=== PATIENT | male | born 1950 | race Caucasian/White ===

== ENCOUNTER 2018-04-11 10:46 | Day surgery (SDC) | payer MEDICARE ==
[~2018-04-11 10:46] MED LIST: ANCEF/STERILE WATER 2 GM/20 ML 2 GM/20 ML SYRINGE IV SCH; ceFAZolin 2 GM in NACL 0.9% 100 ML IV ONE
[2018-04-11] MEDS ORDERED: NACL BACTERIOSTATIC INFILTRATI ONE (11:32)
[2018-04-11] MEDS ORDERED: LACTATED RINGERS 1,000 ML ONE (11:57)
--- NOTE | 2018-04-11 11:57 | Anesthesia Consultation ---
Anesthesia Consult and Med Hx Date of service: 04/11/18 - Airway Anesthetic Teeth Evaluation: Good ROM Head & Neck: Adequate Mental/Hyoid Distance: Adequate Mallampati Class: Class II Intubation Access Assessment: Probably Good - Pre-Operative Health Status ASA Pre-Surgery Classification: ASA2 Proposed Anesthetic Plan: General - Pulmonary Hx Smoking: Yes (FORMER) - Cardiovascular System Hx Hypertension: Yes (10 YEARS) - Central Nervous System Hx Psychiatric Problems: No - Other Systems Hx Alcohol Use: No Hx Substance Use: No Hx Cancer: No
[2018-04-11] MEDS ORDERED: LACTATED RINGERS 1,000 ML IV SCH (12:00)
[2018-04-11] MEDS ORDERED: MARCAINE-EPI 0.5%-1:200,000 INFILTRATI ONE ×2 (12:09→12:45)
[2018-04-11] MEDS ORDERED: MARCAINE 0.5% 0 ML INFILTRATI ONE (12:09)
[2018-04-11] MEDS ORDERED: NUPERCAINAL ONE (12:09)
[2018-04-11] MEDS ORDERED: XYLOCAINE MPF 2% ONE (12:12)
[2018-04-11] MEDS ORDERED: ZEMURON IV ONE (12:12)
[2018-04-11] MEDS ORDERED: APRESOLINE ONE (12:12)
[2018-04-11] MEDS ORDERED: DIPRIVAN 10 MG/ML IV ONE (12:13)
[2018-04-11] MEDS ORDERED: DILAUDID ONE (12:13)
[2018-04-11] MEDS ORDERED: QUELICIN ONE (12:30)
[2018-04-11] MEDS ORDERED: DECADRON ONE (12:50)
[2018-04-11] MEDS ORDERED: ZOFRAN ONE (12:50)
--- NOTE | 2018-04-11 13:16 | Discharge Summary ---
Short Stay Discharge Plan Activity: other (december d/c when stable. cl liq today. reg diet in am. keep dressings dry. ) Weight Bearing Status: Partial Weight Bearing Diet: other Wound: keep clean and dry Additional Instructions: surfak stool softener qd x 3 aleve I po q 6-8hrs prn for breakthrough pain Follow up with: CELESTINO SAMSON MD [Staff Physician] - 04/15/18
[2018-04-11] MEDS ORDERED: SUBLIMAZE ONE (13:29)
--- NOTE | 2018-04-11 13:41 | Operative Report ---
PREOPERATIVE DIAGNOSIS: Left buttock nodule just distal to the dentate line. POSTOPERATIVE DIAGNOSIS: Rule out sebaceous cyst, pending final pathology. PROCEDURE: Excision of aforementioned nodule/cyst including a capsule. SURGEON: José Miguel Wayne MD ANESTHESIA: General. ESTIMATED BLOOD LOSS: Minimal. DRAINS: None. COMPLICATIONS: None. SPECIMENS: Nodule was sent fresh to pathology for aerobic and anaerobic cultures as well as permanent pathology. PROCEDURE IN DETAIL: The patient was taken to the operating room and placed in a jackknife position, prepped and draped in usual sterile fashion. The palpable subcutaneous nodule was outlined with a marking pencil. A 0.5% Marcaine with epinephrine was infiltrated over the area to be incised. A 15 blade was used to incise skin and subcutaneous tissue. Double skin hooks and subsequently Bibiana retractors were used to tract the skin. Needle tip electrocautery as well as sharp and blunt dissection were used to remove the nodule in its entirety. A specimen as mentioned was sent fresh to pathology for cultures and pathology. The area was irrigated copiously and dry. Checked for hemostasis and noted to be dry. The skin was closed with interrupted subcuticular 4-0 Vicryl. The center core of the incision was packed with iodoform gauze. Steri-Strips, 2 x 2s, and a Tegaderm were applied. The patient tolerated the procedure well and left OR in stable condition. JOB# [id number] FOSTER/RON
[2018-04-11 14:26] VITALS: BP 134/75
== END 2018-04-11 14:25 | disposition home or self-care (01) ==
LOC: OR 10:46
PROVIDERS: ATTEND Surgery
DX: L72.0 Epidermal cyst (principal); E78.00 Pure hypercholesterolemia, unspecified; I10 Essential (primary) hypertension; Z90.49 Acquired absence of other specified parts of digestive tract; Z98.890 Other specified postprocedural states; Z87.442 Personal history of urinary calculi; Z79.899 Other long term (current) drug therapy; Z87.891 Personal history of nicotine dependence
CPT/HCPCS: 11402; 87076; 87116; 87186; 88305; J0330; J0690; J1100; J1170; J2405; J2704; J3010; J7120; 88304; J0360